=== PATIENT | female | born 1990 | race Caucasian/White ===

== ENCOUNTER 2018-05-14 09:26 | Emergency (ER) | payer BC ==
[2018-05-14] MEDS ORDERED: Ondansetron ODT TAB* 4 MG PO ONE (09:59)
[2018-05-14] MEDS ORDERED: NS 0.9% 1000 ML* 1,000 ML IV ONE (10:01)
--- NOTE | 2018-05-14 10:15 | UC ---
General HPI - HPI Summary HPI Summary: Pt presents with c/o frequent nausea and vomiting. Pt reports that she is ~ 7 weeks . Is scheduled for initial OB appointment this week. Pt vomited 3 X's yesterday and 1X today. Pt states she is unable to "keep anything down". 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 - History of Current Complaint Chief Complaint: UCGI Stated Complaint: VOMITING Time Seen by Provider: 05/14/18 09:46 Hx Obtained From: Patient Hx Last Menstrual Period: 03/20/18 Onset/Duration: Sudden Onset Timing: Constant Onset Severity: Mild Current Severity: Moderate Pain Intensity: 5 Associated Signs & Symptoms: Positive: Dizziness, Nausea, Vomiting - Allergy/Home Medications Allergies/Adverse Reactions: Allergies Allergy/AdvReac Type Severity Reaction Status Date / Time bee venom protein (honey bee) Allergy Unknown HIVES AND Verified 05/14/18 09:44 VOMITING Home Medications: Home Medications Pnv No.95/Ferrous Fum/Folic AC [ Tablet] 1 tab PO 05/14/18 [History] PMH/Surg Hx/FS Hx/Imm Hx Previously Healthy: Yes - Surgical History Surgical History: Yes Surgery Procedure, Year, and Place: WISDOM TEETH EXTRACTION - Family History Known Family History: Positive: Cardiac Disease - Social History 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 Lives: With Family Alcohol Use: None Substance Use Type: None Smoking Status (MU): Never Smoked Tobacco Have You Smoked in the Last Year: No - Immunization History Most Recent Influenza Vaccination: 06/17/14 Vaccination Up to Date: Yes Review of Systems Constitutional: Fatigue Skin: Negative Eyes: Negative ENT: Negative Respiratory: Negative Cardiovascular: Negative Gastrointestinal: Vomiting, Nausea Genitourinary: Negative Motor: Negative Neurovascular: Negative Musculoskeletal: Negative Neurological: Weakness Psychological: Negative Is Patient Immunocompromised?: No All Other Systems Reviewed And Are Negative: Yes Physical Exam - Summary Physical Exam Summary: pt was lying on side on exam table throughout exam as she reported she felt "sick and light headed" Triage Information Reviewed: Yes Appearance: Ill-Appearing Vital Signs: Initial Vital Signs Temp 99 F 05/14/18 09:46 Pulse 78 05/14/18 09:46 Resp 14 05/14/18 09:46 BP 100/49 05/14/18 09:46 Pulse Ox 100 10/07/18 09:46 Vital Signs Reviewed: Yes Eye Exam: Normal ENT: Positive: Hearing grossly normal Dental Exam: Normal Neck exam: Normal Respiratory: Positive: No respiratory distress Musculoskeletal Exam: Normal Neurological Exam: Normal Psychological Exam: Normal Skin Exam: Normal Course/Dx - Course Course Of Treatment: Pt reports that after 1 liter of IV fluids and 8 mg of ODT zofran she "felt better" and was "hungry" but continued to c/o of slight lightheaded. - Differential Dx - Multi-Symptom Provider Diagnoses: nausea and vomiting with Discharge - Sign-Out/Discharge Documenting (check all that apply): Patient Departure All imaging exams completed and their final reports reviewed: No Studies - Discharge Plan Condition: Stable Disposition: HOME Prescriptions: Ondansetron HCl [Zofran] 8 mg PO Q8H PRN #30 tablet PRN Reason: Nausea Patient Education Materials: Nausea and Vomiting in (ED) Referrals: Jena PENA,Kenyatta Bautista [Primary Care Provider] - If Needed Additional Instructions: Please keep your appointment with your Ob provider as schedule. If symptoms worsen please seek care at the closest emergency room. - Billing Disposition and Condition Condition: STABLE Disposition: Home - Attestation Statements Provider Attestation: I was available for consult. This patient was seen by the HOA. The patient was not presented to, seen by, or examined by me. -Rodger
[2018-05-14 11:16] VITALS: BP 93/51
== END 2018-05-14 11:43 | disposition home or self-care (01) ==
LOC: UCCORT 09:26
DX: O21.0 Mild hyperemesis gravidarum (principal); Z3A.01 Less than 8 weeks gestation of pregnancy
CPT/HCPCS: 81003; 96360; 99213; A9270-GY; G0463

== ENCOUNTER 2018-06-18 08:45 | Emergency (ER) | payer BC ==
--- OUTSIDE RECORDS SUMMARY | 2018-06-18 08:53 | XMS REPORT | Continuity of Care Document ---
:1990 External Reference #:[id number] Author Name Salma Crane CNM Address [address] [place] [address] Care Team Providers Name Role Phone Myra Benitez NP Care Team Information Red Lead Burner Unavailable Payers Type Date Identification Numbers Payment Provider Subscriber Effective: Policy Number: [id number] Rex BOWIE/NAIN Alo Soriano 2014 [facility] PayID: [id number] [address] [address] [place] [address] Advance Directives Description No Information Available Problems Description No Active Problems Family History Date Family Member(s) Problem(s) Comments Father Cancer, Kidney Father Hypertension Mother Skin Cancer Mother Hypercholesterolemia Mother Thyroid Disease Children None First Brother Gastrointestinal Problems Paternal Grandfather Heart Disease Paternal Grandfather due to Old Age () Paternal Grandmother Kidney Disease Maternal Grandfather Prostate Cancer Maternal Grandmother Breast Cancer Maternal Grandmother Depression Maternal Aunts due to ITP () Social History Type Date Description Comments Sex Unknown Education Highest Level Completed, Master's Degree Marital Status Lives With Pets 2 dogs 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 Cigarette Use Does Not Smoke Cigarettes ETOH Use Rarely consumes alcohol Recreational Drug Use Does Not Use Drugs Tobacco Use Start: Unknown Patient has never smoked Smoking Status Reviewed: 05/16/18 Patient has never smoked Exercise Type/Frequency Exercises regularly Seat Belt/Car Seat Always uses seat belt Currently Active Patient is currently sexually active Contraceptive Methods Past methods include oral contraceptives STD's No STD History Allergies, Adverse Reactions, Alerts Description No Known Drug Allergies Medications Medication Date Status Form Strength Qnty SIG Indications Ordering Provider Promethazine HCL 05/30/ Active Tablets 25mg 30tabs 1 tab by Aaron Josue mouth every Díaz, 4-6 hours CNM as needed nausea Diclegis 10/09/ Active Tablets 10-10mg 60tabs 2 pills by Saige 2018 DR mouth at Jump, bedtime can KYLIE-C add 1 by mouth in in the morning and at noon if nausea not better. Ondansetron 05/15/ Active Tablets 4mg 30tabs take 1 Erianna 2018 Dispers tablet Crane, dissolved CNM in the mouth every 8 hours as needed for nausea and vomiting Prenatabs Rx / Active Tablets 29-1mg 1 by mouth Unknown 0000 every day Metoclopramide 05/29/ Hx Tablets 5mg 60tabs 1-2 tabs by Erianna HCL 2018 - mouth every Crane, 05/30/ 6 hours as CNM 2018 needed for nausea Microgestin Fe 10/01/ Hx Strominge 1.01/04 2016 - Isac mccoy 12/05/ . 2017 Multivitamins / Hx Unknown - 2017 Buspirone HCL / Hx Unknown - 2017 Microgestin Fe / Hx Unknown 1.01/04 - 2015 Alprazolam / Hx Tablets 0.25mg Unknown 0000 - 2017 Medications Administered in Office Medication Date Status Form Strength Qnty SIG Indications Ordering Provider No PT Tbco Administered Injection Saige SCRN RNG 018 NAHUN Julien PT SCRN Tbco Administered Injection Saige Id as Non User 018 NAHUN Julien Immunizations Description No Information Available Vital Signs Date Vital Result Comment 06/01/2018 10:50am BP Systolic 96 mmHg BP Diastolic 60 mmHg Height 64 inches 5'4" Weight 107.00 lb BMI (Body Mass Index) 18.4 kg/m2 Last Menstrual Period [id number] 1 Parity 0 05/16/2018 8:42am BP Systolic 100 mmHg BP Diastolic 60 mmHg Height 64 inches 5'4" Weight 108.00 lb BMI (Body Mass Index) 18.5 kg/m2 Last Menstrual Period [id number] 1 Parity 0 12/05/2017 2:09pm BP Systolic 108 mmHg BP Diastolic 66 mmHg Height 64 inches 5'4" Weight 112.00 lb BMI (Body Mass Index) 19.2 kg/m2 Last Menstrual Period [id number] 0 Parity 0 10/11/2016 3:00pm BP Systolic 106 mmHg BP Diastolic 64 mmHg Height 64 inches 5'4" Weight 113.00 lb BMI (Body Mass Index) 19.4 kg/m2 Last Menstrual Period [id number] 0 Parity 0 10/01/2015 2:56pm BP Systolic 102 mmHg BP Diastolic 60 mmHg Height 64 inches 5'4" Weight 115.00 lb BMI (Body Mass Index) 19.7 kg/m2 Last Menstrual Period [id number] 0 Parity 0 Results Test Date Facility Test Result H/L Range Note Laboratory test 12/05/2017 [facility] Cytology SEE RESULT [address] [place] [address] BELOW [phone] Laboratory test 10/01/2015 [facility] Cytology SEE RESULT [address] [place] [address] BELOW [phone] 1 SEE RESULT BELOW Name: ALO SORIANO : [address]: Salma Crane CNM Acct: [id number] Unit: [id number] AGE: 27 Location: [facility] Re12/05/17 SEX: F Status: REG REF SPEC: [id number] ORION: 12/05/17-1514 [facility] DR: Salma Crane CNM REQ: [id number] RECD: 12/06/17 STATUS: SOUT _ ORDERED: TP IMAGE ANALYS COMMENTS: [id number] Negative for Intraepithelial lesion or Malignancy A. Ectocervical/Endocervical Specimen Adequacy: Satisfactory of evaluation Transformation zone component identified Patient Information: HPV: Thin Layer Pap Test w/reflex to high risk HPV RNA testing when ASCUS Actual Specimen Date: 12/05/17 Last Menstrual Date: 11/03/17 Date of Last Specimen: 10/01/15 ?: N Post Menopausal?: N Hysterectomy?: N Previous Abnormal Pap Smears?:N Signed by and Reported on: LILY Etienne (ASCP) 1410 This Pap test was evaluated with the assistance of the [employer] Test Imaging System. Due to cytologic findings at the clinical resource nurse microscope, comprehensive manual rescreening by a Machine Design Engineer may be required. The Pap Smear is a screening test designed to aid in the detection of premalignant and malignant conditions of the uterine cervix. It is not a diagnostic procedure and should not be used as the sole means of detecting cervical cancer. Both false- positive and false- negative reports do occur. Depending on your risk status, a Pap smear should be obtained and evaluated every 1-3 years. END OF REPORT DEPARTMENT OF PATHOLOGY, [address] [place] [address] Cesar Rosario M.D. Director [facility] # [id number] 2 SEE RESULT BELOW Name: ALO DUNNE : [address]: Myra Benitez NP Acct: [id number] Unit: [id number] AGE: 25 Location: [facility] Re10/01/15 SEX: F Status: REG REF SPEC: [id number] ORION: 10/01/15-[address]: Myra Benitez NP REQ: [id number] RECD: 10/02/15-1102 STATUS: SOUT _ ORDERED: IMAGE ANALYSIS FINAL DIAGNOSIS Negative for Intraepithelial lesion or Malignancy A. Ectocervical/Endocervical Specimen Adequacy: Satisfactory of evaluation Transformation zone component identified Patient Information: HPV: Thin Layer Pap Test w/reflex to high risk HPV RNA testing when ASCUS Actual Specimen Date: 10/01/15 Last Menstrual Date: 09/16/15 ?: N Signed (signature on file) LILY Etienne (ASCP) 10/03 1256 This Pap test was evaluated with the assistance of the ThinPrep Test Imaging System. Due to cytologic findings at the clinical resource nurse microscope, comprehensive manual rescreening by a Machine Design Engineer may be required. The Pap Smear is a screening test designed to aid in the detection of premalignant and malignant conditions of the uterine cervix. It is not a diagnostic procedure and should not be used as the sole means of detecting cervical cancer. Both false- positive and false- negative reports do occur. Depending on your risk status, a Pap smear should be obtained and evaluated every 1-3 years. END OF REPORT * ML=Testing performed at Main Lab DEPARTMENT OF PATHOLOGY, [address] [place] [address] Cesar Rosario M.D. 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 architect 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 2:20p CNM (general) (routine) w/o abn findings Z31.69 Encounter for oth general coun and advice on procreation Office Visit 10/11/2016 3:30p [facility] Office Myra Benitez NP Z01.419 Encntr 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 enterprise solutions architect exam (general) (routine) w/o abn findings Office Visit 10/01/2015 3:00p [facility] Office Myra Benitez NP Z01.419 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 You declined suppositories.Consider magnesium supplement, epsom salt soaks, magnesium oil/ cream rubbed on legs.We discussed need to trial meds for more than 1-3 days to consider effectiveness. You may have to balance nausea/vomiting with other SE as we may not be able to control both. Use Zofran only for extreme or breakthrough N/V due to possible serotonin syndrome with concomintant use of Phenergan, per UpToDate.Small meals throughout day, sip fluids throughout day. Try to do a small amount of physical movement like short walk, stretch as tolerated which may help with restelessness. Call with vomiting that is unremitting, not keeping/getting any fluids down and we can consider calling convenient care to see if they will take you with our ok as opposed to the ER. Return for NOB as scheduled.
[2018-06-18 09:11] VITALS: BP 96/43
--- NOTE | 2018-06-18 10:52 | UC ---
- HPI Summary HPI Summary: Pt c/o continuous nausea and vomiting since becoming . Pt has been diagnosed with Hyperemesis gravidum by OB provider. Pt has been manage, unsuccessfully as outpatient. Pt presents with request for hydration. Has taken zofran 1 hour ago - History of Current Complaint Chief Complaint: UCGI Stated Complaint: NAUSEA DUE TO HAVING HG (11 WKS ) Time Seen by Provider: 06/18/18 08:59 Hx Obtained From: Patient Onset/Duration: Started Weeks Ago, Still Present Timing: Constant Severity: Severe Current Severity: Severe Pain Intensity: 0 Location of Pain: None Character: Burning, Colicy, Dull Aggravating Factors: Other: - PO intake Alleviating Factors: Nothing Associated Signs and Symptoms: Positive: Nausea, Vomiting - Assessment Hx Now: Yes History of Ectopic : No Hx Pelvic Inflammatory Disease: No Vaginal Bleeding Amount: None Contraction Intensity: Mild Hx Hysterectomy: No History of STI/STD: No - Risk Factors Ectopic Risk Factor: Negative Ovarian Torsion Risk Factor: Reproductive Age - Allergies/Home Medications Allergies/Adverse Reactions: Allergies Allergy/AdvReac Type Severity Reaction Status Date / Time bee venom protein (honey bee) Allergy Unknown HIVES AND Verified 06/18/18 09:07 VOMITING Home Medications: Home Medications Folic Acid TAB* [Folvite TAB*] 1 mg PO DAILY 06/18/18 [History Confirmed ] PMH/Surg Hx/FS Hx/Imm Hx Previously Healthy: Yes - Surgical History Surgical History: Yes Surgery Procedure, Year, and Place: WISDOM TEETH EXTRACTION - Family History Known Family History: Positive: Cardiac Disease - Social History Occupation: Employed Full-time Lives: With Family Alcohol Use: None Substance Use Type: None Smoking Status (MU): Never Smoked Tobacco Have You Smoked in the Last Year: No - Immunization History Most Recent Influenza Vaccination: 06/17/14 Vaccination Up to Date: Yes Review of Systems All Other Systems Reviewed And Are Negative: Yes Constitutional: Positive: Fatigue Skin: Positive: Negative Eyes: Positive: Negative ENT: Positive: Negative Respiratory: Positive: Negative Cardiovascular: Positive: Negative Gastrointestinal: Positive: Vomiting, Nausea Genitourinary: Positive: Negative Motor: Positive: Negative Neurovascular: Positive: Negative Musculoskeletal: Positive: Negative Neurological: Positive: Negative Psychological: Positive: Negative Is Patient Immunocompromised?: No Physical Exam - Physical Exam Triage Information Reviewed: Yes Vital Signs Reviewed: Yes Appearance: Positive: Ill-Appearing Skin: Positive: Warm, Skin Color Reflects Adequate Perfusion Head/Face: Positive: Normal Head/Face Inspection Eyes: Positive: Normal ENT: Positive: Hearing grossly normal Neck: Positive: Supple, Nontender Respiratory/Lung Sounds: Positive: Clear to Auscultation Cardiovascular: Positive: Normal Abdomen Description: Positive: Nontender Musculoskeletal: Positive: Normal Neurological: Positive: Normal Psychiatric: Positive: Normal AVPU Assessment: Alert Course/Dx - Course Course Of Treatment: Pt was given educayional material on HG. Additionally, I discussed the need for management by OB providera nd not through UC. Pt verbalized understanding and was told by OB provider that dcould provide hydration support. - Differential Diagnosis/HQI/PQRI: Hyperemesis Gravidarum - Diagnoses Provider Diagnoses: Hyperemesis gravidarum Discharge - Sign-Out/Discharge Documenting (check all that apply): Patient Departure All imaging exams completed and their final reports reviewed: No Studies - Discharge Plan Condition: Stable Disposition: HOME Patient Education Materials: Nausea and Vomiting in (ED) Referrals: Jena PENA,Kenyatta Bautista [Primary Care Provider] - Additional Instructions: Please follow up with your OB provider as soon as possible. - Billing Disposition and Condition Condition: STABLE Disposition: Home - Attestation Statements Provider Attestation: Per institutional requirements, I have reviewed the chart, however, I was not consulted specifically or made aware of this patient by the midlevel provider. I did not personally evaluate, interact with , or disposition this patient.
== END 2018-06-18 10:59 | disposition home or self-care (01) ==
LOC: UCCORT 08:45
DX: O21.0 Mild hyperemesis gravidarum (principal); Z3A.11 11 weeks gestation of pregnancy
CPT/HCPCS: 96360; 99212; G0463

== ENCOUNTER 2018-06-26 08:23 | Emergency (ER) | payer BC ==
[2018-06-26 08:40] VITALS: BP 106/60
[2018-06-26] MEDS ORDERED: NS 0.9% 1000 ML* 1,000 ML IV ONE (08:45)
--- NOTE | 2018-06-26 09:10 | UC ---
Nausea/Vomiting/Diarrhea HPI - HPI Summary HPI Summary: Patient is 13 weeks . Patient with hyperemesis with this . Patient's got Zofran at home. Patient states that the Zofran helps with the vomiting but she still feels nauseous. Patient states she was in the ED yesterday. Patient was given fluids as well as Zofran. Patient states she got home approximately 2 PM she started vomiting. Patient states she vomited several times to the night. Last bout of emesis was last night around 9:00. Patient states she took some Zofran at 6:30 this morning. Patient states she continues to feel nauseous and dry. Patient states she is making urine but it' s very dark in color. No dysuria. No vaginal bleeding. No odor. Patient denies any other complaints. Patient's followed by the [facility]. They are aware tried different antiemetics. Patient without any other complaints. No fevers or chills. Patient's medications reviewed this visit - History of Current Complaint Chief Complaint: UCGI Stated Complaint: NAUSEA,VOMITING Time Seen by Provider: 06/26/18 09:09 Hx Obtained From: Patient, Medical Records Hx Last Menstrual Period: 03/20/18 Onset/Duration: Gradual Onset Timing: Constant Severity Initially: Mild Severity Currently: Mild Pain Intensity: 0 - Allergies/Home Medications Allergies/Adverse Reactions: Allergies Allergy/AdvReac Type Severity Reaction Status Date / Time bee venom protein (honey bee) Allergy Unknown HIVES AND Verified 06/26/18 08:36 VOMITING Home Medications: Home Medications Ondansetron ODT TAB* [Zofran 4 MG Odt TAB*] 4 - 8 mg PO Q6H PRN 06/26/18 [ History Confirmed 06/26/18] PMH/Surg Hx/FS Hx/Imm Hx Previously Healthy: Yes - Surgical History Surgical History: Yes Surgery Procedure, Year, and Place: WISDOM TEETH EXTRACTION - Family History Known Family History: Positive: Cardiac Disease - Social History Alcohol Use: None Substance Use Type: None Smoking Status (MU): Never Smoked Tobacco Have You Smoked in the Last Year: No - Immunization History Most Recent Influenza Vaccination: 06/17/14 Vaccination Up to Date: Yes Review of Systems All Other Systems Reviewed And Are Negative: Yes Constitutional: Positive: Negative Gastrointestinal: Positive: Nausea Physical Exam - Summary Physical Exam Summary: Vital Signs Reviewed: Yes A+Ox3, no distress Eyes: Conjunctiva Clear, ENT: Hearing grossly normal, lips dry, mm pasty Neck: Positive: Supple Respiratory: Positive: No respiratory distress, No accessory muscle use + CTA throughout no w/r Cardiovascular: RRR nl s1, s2 no m/r CBT <2 sec abd soft + BS nt/nd no guarding, no distension soft Musculoskeletal Exam: OQUENDO x 4 without difficulty Strength Intact, ROM Intact Neurological: Positive: Alert, + sensation throughout Psychological: Positive: Normal Response To Family Skin: Positive: no rash, no ecchymosis Triage Information Reviewed: Yes Vital Signs: Initial Vital Signs Temp 98.1 F 06/26/18 08:35 Pulse 106 06/26/18 08:35 Resp 16 06/26/18 08:35 BP 106/60 06/26/18 08:35 Pulse Ox 100 06/26/18 08:35 Naus/Vom/Diarrhea Course/Dx - Course Course Of Treatment: Patient's 13 weeks . Patient with hyperemesis gravidarum. Patient's been seen multiple times for emesis. Patient 's also follow by her PASSENGER LOCOMOTIVE ENGINEER who is prescribed multiple anti-medics. Patient was in the ED yesterday received IV fluid. Patient here today - Differential Dx/Diagnosis Provider Diagnoses: hyperemesis gravidum Condition At Discharge: Stable Discharge - Sign-Out/Discharge Documenting (check all that apply): Patient Departure All imaging exams completed and their final reports reviewed: No Studies - Discharge Plan Condition: Stable Disposition: HOME Patient Education Materials: Hyperemesis Gravidarum (ED) Referrals: Jena PENA,Kenyatta Bautista [Primary Care Provider] - Additional Instructions: - Take zofran as prescribed - Small frequent sips of fluids, ice chips - bland food - dry toast, scambled eggs, crackers - contact your doctor or go to the emergency department with questions or concerns - Billing Disposition and Condition Condition: STABLE Disposition: Home
== END 2018-06-26 09:57 | disposition home or self-care (01) ==
LOC: UCCORT 08:23
DX: O21.0 Mild hyperemesis gravidarum (principal); Z3A.13 13 weeks gestation of pregnancy
CPT/HCPCS: 96360; 99211; G0463

== ENCOUNTER 2018-12-31 01:26 | Inpatient (IN) | payer BC ==
[2018-12-31] MEDS ORDERED: Nalbuphine* 10 MG/ML 1 ML VIAL IM PRN (02:23)
[2018-12-31] MEDS ORDERED: Promethazine INJ(RESTRICTED)* 25 MG/ML 1 ML VIAL IM PRN (02:23)
[2018-12-31] MEDS ORDERED: Ondansetron ODT TAB* 4 MG PO PRN (02:26)
[2018-12-31] MEDS ORDERED: Buffered Lidocaine 1% SYRIN* 1 ML/SYRINGE INTRADERM ONE (09:04)
[2018-12-31] MEDS ORDERED: Lactated Ringers 1000 ML Bag* 1,000 ML IV ONE (09:04)
--- NOTE | 2018-12-31 09:15 | HP ---
General Information - Reason for Visit Patient reports large gush and continued trickle of clear fluid from 2129 last night. Contractions now approx Q 5 min. Some bloody show. Received Nubain/ Phenargan with some pain relief and slept a little. - General Information Maternal Age: 28 Grav: 1 Para: 0 SAB: 0 IEA: 0 Estimated Due Date: 01/06/19 Determined By: Early Ultrasound Gestational Age in Weeks/Days: 39+1 weeks Maternal Blood Type and Rh: A Positive - Results this Serology/RPR Result: Non-Reactive Rubella Result: Immune HBsAg Result: Negative HIV Result: Negative GBS Culture Result: Negative Past Medical History Delivery History: See Records Delivery History Comment: No previous pregnancies Pertinent Past Medical History: See Records Past Medical History Comment: Depression/anxiety Pertinent Past Surgical History: See Records Past Surgical History Comment: Matinicus teeth 2011 Pertinent Family History: See Records Family History Comment: Breast Ca -- maternal grandmother Hypothyroid -- mother HTN Kidney Ca Hypercholesteremia Celiac? Heart dz Prostate Ca - Antepartal Records Antepartal Records: Reviewed, Uncomplicated Review of Systems Constitutional: Uncomfortable CV Complaint: No Respiratory: Shortness of Breath: No Gastrointestinal: Nausea, Soft Stool Genitourinary: Leaking Fluid, No Dysuria, Spotting Musculoskeletal: Contractions Neurological: No Headache, No Visual Changes Movement: Normal Exam Allergies/Adverse Reactions: Allergies bee venom protein (honey bee) Allergy (Unknown, Verified 12/31/18 01:37) HIVES AND VOMITING BP 99/47 T 99.4 HR 68 - Measurements Height: 5 ft 5 in Weight: 140 lb Weight in lbs: [id number] Body Mass Index (BMI): 23.3 Pre- Weight: 107 lb Weight Gained This : 33 lbs and 0 ozs - Exam Breast: Breast Exam Deferred CVA: No CVA Tenderness Extremities: No Edema Heart: Normal Rhythm/Heart Sounds HEENT: No Significant Findings Lungs: Clear Bilaterally Rectal: Rectal Exam Deferred Reflexes: DTR 2+, - - no clonus Thyroid: - - WNL @ entry to care - Abdominal Exam Abdomen Exam: Non-Tender, Fundal Height Consistent with Dates - Ultrasound/Biophysical Profile Ultrasound Status: Not Done Targeted Exam Findings See L&D Outpatient Visit Provider Note for Findings: N/A Estimated Weight: 7lb Cervical Exam: 4cm Effacement: 100% Station: 0 Presenting Part: Vertex Membrane Status: SROM Amniotic Fluid Evaluation: Gross Rupture Bleeding/Discharge: Bloody Show EFM Findings - External Monitor Findings Baseline Heart Rate: 140 External Monitor Findings: Accelerations Present, No Pattern of Variable or Late Decelerations - Single variable decel approx 1 min long, found on initiation of monitoring so uncertain if longer. Return to baseline., Variability Moderate Contractions: Regular, Moderate, 45-90 Seconds Contraction Frequency: Q 4-5 min Assessment/Plan - Assessment IUP @ 39+1 weeks gestation in early labor. Spontaneous rupture of membranes. No evidence metabolic acidemia. - Plan Plan: Admit - Anticipate Vaginal Delivery Plan Comment: Admit to L&D. Patient prefers to avoid epidural anesthesia if possible. Discussion of IV fluid for hydration, patient in agreement. Will try hydrotherapy, continued position changes. Consider nitrous if desired. Anticipate SVB. - Date/Time of Admission Date of Admission: 12/31/18 Time of Admission: 02:27
[2018-12-31] MEDS ORDERED: Lactated Ringers 1000 ML Bag* 1,000 ML IV SCH ×2 (10:00→13:00)
[2018-12-31 10:05] LABS: ABS Lymphocytes 1.4 10^3/ul (1.0-4.8); ABS Monocytes 0.8 10^3/ul (0-0.8); ABS Neutrophils 10.9 10^3/ul (1.5-7.7); Eosinophil % 0.1 %; Hematocrit 37 % (35-47); Hemoglobin 12.1 g/dL (12.0-16.0); Lymphocyte % 10.7 %; Mean Corpuscular HGB Conc 33 g/dL (31-36); Mean Corpuscular Hemoglobin 27 pg (27-31); Mean Corpuscular Volume 84 fL (80-97); Mean Platelet Volume 8.8 fL (7.4-10.4); Platelet Count 225 10^3/uL (150-450); Red Blood Count 4.43 10^6 /uL (3.70-4.87); Red Cell Distribution Width 16 % (10.5-15); White Blood Count 13.2 10^3/uL (3.5-10.8)
--- NOTE | 2018-12-31 10:34 | PN ---
Progress Note - Progress Note Date of Service: 12/31/18 Note: S: Patient reports feeling "like she has to poop" with increased pressure after getting out of tub. O: VE 7-8cm/100/vtx +1 FHT 150 VSS, afebrile A: IUP in active labor Cat 1 FHT P: Encourage position changes, anticipate SVB
[2018-12-31] MEDS ORDERED: Oxytocin in LR* 0 UNITS/0 ML BAG IVPB ONE (10:59)
[2018-12-31] MEDS ORDERED: Dibucaine 1% 28.35 GM TUBE PR PRN (12:09)
[2018-12-31] MEDS ORDERED: Acetaminophen TAB* 325 MG PO PRN (12:09)
[2018-12-31] MEDS ORDERED: Glycerin ADULT SUPP PR PRN (12:09)
[2018-12-31] MEDS ORDERED: Witch Hazel PAD* JAR TOPICAL PRN (12:09)
--- NOTE | 2018-12-31 13:51 | PROCNOTE ---
[facility] OB: Delivery Note - Nursery Level of Nursery: Regular/Bedside - Perineum Perineal Injury: Perineal Laceration, 1st Degree Perineal Repair: By Delivering Practioner - Additional Delivery Notes Additional Delivery Notes: Patient admitted after SROM at home 12/30 approx 2130. UCs started slowly, picking up in intensity and patient admitted in early labor. Received IM nubain/ phenargan with some relief. Woke with stronger contractions and good progression to complete. LOL 12'11", pushed 51 min. Baby born @ 1134 OA to TORRES with nuchal X1, delivered through and unwrapped after. To maternal abdomen with spontaneous cry, HR >110. Apgars 9, 9. Cord doubly clamped X 2 and cut by FOB once pulsations ceased. Placenta delivered with gentle cord traction @ 1141 in [place] presentation with intact-appearing membranes and 3VC. Fundus firm to massage. Baby at breast to initiate . Weight 6lb 5oz. Baby name Sofia Renteria
[2018-12-31] MEDS ORDERED: Lidocaine 1% INJ* 10 MG/ML 30 ML SDV ONE (15:31)
[2018-12-31] MEDS: Docusate CAP* 100 MG PO SCH ×2 (15:52→21:40)
[2018-12-31] MEDS: Ibuprofen TAB* 600 MG PO PRN (15:52)
[2019-01-01] MEDS: Ibuprofen TAB* 600 MG PO PRN ×2 (04:28→19:57)
[2019-01-01 08:59] LABS: ABS Basophils 0.1 10^3/ul (0-0.2); ABS Eosinophils 0.1 10^3/ul (0-0.6); ABS Lymphocytes 1.8 10^3/ul (1.0-4.8); ABS Monocytes 0.9 10^3/ul (0-0.8); ABS Neutrophils 8.9 10^3/ul (1.5-7.7); Eosinophil % 0.6 %; Hematocrit 34 % (35-47); Hemoglobin 11.2 g/dL (12.0-16.0); Lymphocyte % 15.4 %; Mean Corpuscular HGB Conc 33 g/dL (31-36); Mean Corpuscular Hemoglobin 27 pg (27-31); Mean Corpuscular Volume 83 fL (80-97); Mean Platelet Volume 8.8 fL (7.4-10.4); Platelet Count 209 10^3/uL (150-450); Red Blood Count 4.13 10^6 /uL (3.70-4.87); Red Cell Distribution Width 16 % (10.5-15); White Blood Count 11.8 10^3/uL (3.5-10.8)
[2019-01-01] MEDS ORDERED: Ferrous Gluconate TAB* 324 MG TAB PO SCH (09:00)
[2019-01-01] MEDS: Docusate CAP* 100 MG PO SCH ×3 (09:54→19:57)
[2019-01-02 08:03] VITALS: BP 100/68
[2019-01-02] MEDS: Docusate CAP* 100 MG PO SCH (08:18)
== END 2019-01-02 12:31 | disposition home or self-care (01) | DRG 560 ==
LOC: MCHOBOUT 01:26 → MCHOB 02:27
PROVIDERS: ADMIT Midwife; ATTEND Midwife
PROC: 10E0XZZ Delivery of Products of Conception, External Approach (ICD-10-PCS; principal; 2018-12-31)
PROC: 0HQ9XZZ Repair Perineum Skin, External Approach (ICD-10-PCS; 2018-12-31)
DX: O99.344 Other mental disorders complicating childbirth (principal); Z37.0 Single live birth; F41.9 Anxiety disorder, unspecified; F32.9 Major depressive disorder, single episode, unspecified; O70.0 First degree perineal laceration during delivery; O69.81X0 Labor and delivery complicated by cord around neck, without compression, not applicable or unspecified; Z3A.39 39 weeks gestation of pregnancy
CPT/HCPCS: 36415; 85025; 86850; 86900; 86901; A9270-GY; J2300; J2550

== ENCOUNTER 2019-07-20 07:34 | Emergency (ER) | payer BC ==
--- OUTSIDE RECORDS SUMMARY | 2019-07-20 07:40 | XMS REPORT | Summary of Care ---
:1990 Author Organization [facility] Address [address] [place] [address] Care Team Providers Name Role Phone Nader Webster MD Primary Care Provider Encounter Details Date Type Department Care Team Description 06/21/2019 Hospital Encounter [facility] Outpatient Arrived Therapy [facility] [address] [place] [address] Allergies Not on Filedocumented as of this encounter (statuses as of 06/22/2019) Medications Not on filedocumented as of this encounter (statuses as of 06/22/2019) Active Problems Not on filedocumented as of this encounter (statuses as of 06/22/2019) Social History Tobacco Use Types Packs/Day Years Used Date Never Assessed Sex Assigned at Date Recorded Not on file Job Start Date Occupation Industry Not on file Not on file Not on file Travel History Travel Start Travel End No recent travel history available. documented as of this encounter Last Filed Vital Signs Not on filedocumented in this encounter Progress Notes Tamika Acosta, PT - 06/21/2019 5:05 PM ESTPhysical Therapy Outpatient Pelvic Floor Treatment Note Referring Clinician: Salma Crane CNM Medical Diagnosis: Pelvic Floor Dysfunction Rehabilitation Precautions/Restrictions: none Goal Review Visit Number: 8 SUBJECTIVE Patient Report: pt reports that she still continues to have some "dripping" in her sleep and also at random times when she is going about her day. She has been doing some more running for exercise but not a whole lot. She does not have any leaking with walking. She has stopped doing the exercises and has had some issues with pain with insertion during intercourse. Pain Medication Today: no. Pain: Patient has no complaints of pain currently. OBJECTIVE General Observation: pt encountered, pleasant female in waiting room in' NAD Outcome Measures: Recently assessed, not applicable at this time. Range of Motion:Not assessed. Strength:Not assessed. Palpation: not assessed Bacteriology Professor Present: Not applicable this visit. Interventions: Therapeutic Exercise: The pt was instructed in and performed the following with verbal and tactile cues to promote maximal level of pt participation and for appropriate form, technique and speed: - supine, knees supported diaphragmatic breathing with cues for relaxing at hips and pelvis during this task, cues for progressive relaxation; - supine knees to chest 10 breaths; - supine obturator internus stretch with thighs crossed each side 10 breaths; pt instructed to perform all at home 2x per day to promote relaxation of pelvic floor musculature Education: Mode of education provided: Explanation. Audience: Patient. Education Provided: role of pelvic floor PT; progress toward PT goals; home exercise program . Response: Indicates understanding. ASSESSMENT Therapy Diagnosis: Rank Code Description Date of Onset 1 Z39.2 Encounter for routine follow-up 12/31/2018 2 N39.41 Urge incontinence 12/31/2018 3 R39.15 Urgency of urination 12/31/2018 Response to Visit: The session was tolerated well. Pt is progressing well hwoever continues to have difficulty with incontinence likely due to intermittent muscle fatigue at pelvic floor, pt instructed to perform diaphragmatic breathing 2x per day and attempt stress management regimen. Pt continues to wear pad each day due to leakage. Pain: Patient has no complaints of pain currently. Clinical Status Changes: Patient has not experienced significant, unusual or unexpected change in clinical status since their last visit. Goal review: Short Term Goals: 1. Pt will decrease impact of urgency incontinence on pt's quality of life as evidenced by a decrease in JAE-6 score from 07/31 to 6, within 4 weeks. Status: not assessed 2. Pt will report no leakage with transfers from standing to sitting position 100% of the time over the course of one week, within 4 weeks. Status: goal met Noise Tester Goals: 1. Pt will decrease impact of urgency incontinence on quality of life as indicated by decrease in JAE-6 score from 12 to 0/24, within 8 weeks. Status: not assessed 2. goal met Status: goal met PLAN Intervention considerations/suggestions for future therapy sessions: . clam shell exercises cupping monica LEs hip strengthening Treatment Frequency, Duration, and Interventions: Restorative Physical Therapy is recommended for once every week for 30-60 minutes for 4 weeks, starting 06/21/19 Treatment is to include: Gait Training. Therapeutic Activity. Therapeutic Exercise. Neuromuscular Re-education. Self Care/Home Management. Manual Therapy. Equipment Provided: None issued this visit. Recommended Consults: None currently. Development of Plan of Care: Participants included: pt. There was no change to plan of care today. Visit Number: Today's visit is number 8 Program: Pelvic Dysfunction SESSION: Duration: 35 CHARGES: [id number] - CHARGE - PT THER EX - 15 MIN 2 Units - PELVIC DYSFUNCTION VISIT 1 Units Total treatment minutes: 35.00 Minutes Electronically Signed by: Tamika Acosta DPT, 06/21/2019 5:23:08 PM documented in this encounter Plan of Treatment Not on filedocumented as of this encounter Results Not on filedocumented in this encounter
--- OUTSIDE RECORDS SUMMARY | 2019-07-20 07:40 | XMS REPORT | Summary of Care ---
:1990 Author Organization [facility] Address [address] [place] [address] Care Team Providers Name Role Phone Nader Webster MD Primary Care Provider Encounter Details Date Type Department Care Team Description 06/21/2019 Hospital Encounter [facility] Outpatient Arrived Therapy @ [facility] [address] [place] [address] Allergies Not on Filedocumented as [...] Signs Not on filedocumented in this encounter Plan of Treatment Not on filedocumented as of this encounter Results Not on filedocumented in this encounter
[2019-07-20 07:58] VITALS: BP 96/58
--- NOTE | 2019-07-20 08:14 | UC ---
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 Has had low grade fever off and on. Malaise and myalgias have persisted, with loose stool today following several days without loose stools. No cough or headache, sore throat began this morning. Breast feeding a 6 mo --both she and her child just had flu vaccine this week. - History of Current Complaint Chief Complaint: UCRespiratory Stated Complaint: FEVER,VOMITING,ST,PENG Time Seen by Provider: 07/20/19 08:05 Hx Obtained From: Patient Hx Last Menstrual Period: 03/2018 Onset/Duration: Sudden Onset, Lasting Days - 5 Timing: Intermittent Episodes Lasting: - hours Onset Severity: Mild Current Severity: Mild Pain Intensity: 2 Associated Signs & Symptoms: Positive: Diarrhea, Fever, Nausea, Vomiting - Allergy/Home Medications Allergies/Adverse Reactions: Allergies Allergy/AdvReac Type Severity Reaction Status Date / Time bee venom protein (honey bee) Allergy Unknown HIVES AND Verified 07/20/19 07:45 VOMITING Home Medications: Home Medications Acetaminophen [Acetaminophen Extra Strength] 1,000 mg PO ONCE PRN 07/20/19 [ History Confirmed 07/20/19] Norethindrone [Deblitane] 0.35 mg PO QPM 07/20/19 [History Confirmed 07/20/19] PMH/Surg Hx/FS Hx/Imm Hx Previously Healthy: Yes - Surgical History Surgical History: Yes Surgery Procedure, Year, and Place: WISDOM TEETH EXTRACTION - Family History Known Family History: Positive: Cardiac Disease - Social History Occupation: Employed Full-time Lives: With Family Alcohol Use: None Substance Use Type: None Smoking Status (MU): Never Smoked Tobacco Have You Smoked in the Last Year: No - Immunization History Most Recent Influenza Vaccination: 06/19/18 Most Recent Pneumonia Vaccination: none Vaccination Up to Date: Yes Review of Systems All Other Systems Reviewed And Are Negative: Yes Constitutional: Positive: Fever, Fatigue Skin: Positive: Negative Eyes: Positive: Negative ENT: Positive: Sore Throat Respiratory: Positive: Negative Cardiovascular: Positive: Negative Gastrointestinal: Positive: Vomiting - now resolved, Diarrhea, Nausea Genitourinary: Positive: Negative Motor: Positive: Negative Neurovascular: Positive: Negative Musculoskeletal: Positive: Myalgia Neurological: Positive: Negative Psychological: Positive: Negative Is Patient Immunocompromised?: No Physical Exam Triage Information Reviewed: Yes Appearance: No Pain Distress, Ill-Appearing - looks pale and fatigued, Thin Vital Signs: Initial Vital Signs Temp 99 F 07/20/19 07:49 Pulse 90 07/20/19 07:49 Resp 20 07/20/19 07:49 BP 96/58 07/20/19 07:49 Pulse Ox 100 07/20/19 07:49 Eyes: Positive: Conjunctiva Clear ENT: Positive: Pharyngeal erythema, TMs normal. Negative: Tonsillar swelling, Tonsillar exudate Neck: Positive: Supple, Nontender, No Lymphadenopathy Respiratory: Positive: Lungs clear, Normal breath sounds Cardiovascular: Positive: RRR, No Murmur Abdomen Description: Positive: Nontender, No Organomegaly, Soft Bowel Sounds: Positive: Present Musculoskeletal Exam: Normal Neurological Exam: Normal Psychological Exam: Normal Skin Exam: Normal, Other - small excoriations left side of neck from scratching. Diagnostics - Laboratory Lab Results: Rapid flu and rapid strep tests negative. Course/Dx - Course Course Of Treatment: symptomatic treatment of viral syndrome. - Differential Dx - Multi-Symptom Differential Diagnoses: Other - viral syndrome, influenza, pharyngitis - Diagnoses Provider Diagnosis: Acute viral syndrome Discharge ED - Sign-Out/Discharge Documenting (check all that apply): Patient Departure All imaging exams completed and their final reports reviewed: No Studies - Discharge Plan Condition: Stable Disposition: HOME Patient Education Materials: Viral Syndrome (ED) Forms: *Work Release Referrals: Kenyatta Bella PA [Primary Care Provider] - Additional Instructions: Continue symptomatic treatment of viral illness. Get as much rest as you can, continue use of acetaminophen for control of fever and aches and pains, continue high intake of fluids. Follow up if you have persistent or increasing fever, cough or shortness of breath. - Billing Disposition and Condition Condition: STABLE Disposition: Home
[2019-07-20 08:34] LABS: Influenza A Molecular NEGATIVE (Negative); Influenza B Molecular NEGATIVE (Negative)
== END 2019-07-20 08:49 | disposition home or self-care (01) ==
LOC: UCCORT 07:34
DX: B34.9 Viral infection, unspecified (principal); R53.83 Other fatigue; M79.10 Myalgia, unspecified site; R19.7 Diarrhea, unspecified; Z91.030 Bee allergy status
CPT/HCPCS: 87651; 99211; G0463

== ENCOUNTER 2021-05-12 09:48 | Inpatient (IN) ==
[2021-05-12] MEDS ORDERED: Lactated Ringers 1000 ml BAG 1,000 ML IV ONE (11:04)
[2021-05-12 12:11] LABS: Urine Benzodiazepine Screen None Detected (None Detect); Urine Cannabinoids Screen None Detected (None Detect); Urine Opiates Screen None Detected (None Detect)
[2021-05-12] MEDS ORDERED: Buffered Lidocaine 1% SYRIN 1 ml INTRADERM ONE (12:22)
[2021-05-12 12:43] LABS: Rapid COVID-19 Molecular Undetected (Undetected)
[2021-05-12] MEDS: Ondansetron 4 mg VIAL 2 MG/ML 2 ml VIAL IV PRN ×2 (12:51→16:32)
[2021-05-12 13:02] LABS: Urine Appearance Cloudy; Urine Bilirubin Negative (Negative); Urine Blood Negative (Negative); Urine Color Straw; Urine Glucose Negative (Negative); Urine Ketones Negative (Negative); Urine Nitrite Negative (Negative); Urine Protein Negative (Negative); Urine Specific Gravity 1.004 (1.002-1.030); Urine Urobilinogen Negative (Negative)
[2021-05-12 13:21] LABS: Urine Bacteria 1+ (Absent); Urine Red Blood Cell Absent (Absent); Urine Squamous Epithelial Cell Present (Absent); Urine White Blood Cell Trace(0-5/hpf) (Absent)
[2021-05-12] MEDS ORDERED: Dibucaine 1% OINT 28.35 GM TUBE PR PRN (17:42)
[2021-05-12] MEDS ORDERED: Oxytocin 10 UNITS/ML 1 ML VIAL IM ONE (17:42)
[2021-05-12] MEDS ORDERED: Witch Hazel PAD JAR TOPICAL PRN (17:42)
[2021-05-12] MEDS ORDERED: Ammonia Inhalant 1 EA AMP ONE (18:56)
[2021-05-12 23:57] LABS: Hypochromasia 1+; Microcytosis 1+; Polychromasia 1+
[2021-05-12 23:58] LABS: ABS Basophils 0.1 10^3/ul (0-0.2); ABS Lymphocytes 1.8 10^3/ul (1.0-4.8); ABS Monocytes 0.7 10^3/ul (0-0.8); ABS Neutrophils 5.9 10^3/ul (1.5-7.7); Eosinophil % 0.5 %; Hematocrit 29 % (35-47); Hemoglobin 9.2 g/dL (12.0-16.0); Lymphocyte % 20.7 %; Mean Corpuscular HGB Conc 31 g/dL (31-36); Mean Corpuscular Hemoglobin 23 pg (27-31); Mean Corpuscular Volume 73 fL (80-97); Mean Platelet Volume 9.8 fL (7.4-10.4); Nucleated Red Blood Cells % 0.4; Platelet Count 210 10^3/uL (150-450); Red Blood Count 4.03 10^6 /uL (3.70-4.87); Red Cell Distribution Width 20 % (10-15); White Blood Count 8.5 10^3/uL (3.5-10.8)
[2021-05-13 07:09] LABS: ABS Basophils 0.1 10^3/ul (0-0.2); ABS Eosinophils 0.1 10^3/ul (0-0.6); ABS Lymphocytes 1.6 10^3/ul (1.0-4.8); ABS Monocytes 0.9 10^3/ul (0-0.8); ABS Neutrophils 7.8 10^3/ul (1.5-7.7); Eosinophil % 0.6 %; Hematocrit 26 % (35-47); Hemoglobin 8.4 g/dL (12.0-16.0); Lymphocyte % 15.2 %; Mean Corpuscular HGB Conc 33 g/dL (31-36); Mean Corpuscular Hemoglobin 23 pg (27-31); Mean Corpuscular Volume 70 fL (80-97); Mean Platelet Volume 9.3 fL (7.4-10.4); Nucleated Red Blood Cells % 0.2; Platelet Count 198 10^3/uL (150-450); Red Blood Count 3.69 10^6 /uL (3.70-4.87); Red Cell Distribution Width 20 % (10-15); White Blood Count 10.4 10^3/uL (3.5-10.8)
[2021-05-13] MEDS ORDERED: Measles, Mumps,Rubella VACC 0.5 ML/VIAL SUBCUT ONE (09:00)
[2021-05-13 16:01] VITALS: BP 100/62
== END 2021-05-13 19:10 | disposition home or self-care (01) | DRG 560 ==
LOC: MCHOBOUT 09:48 → MCHOB 11:20
PROVIDERS: ADMIT Midwife; ATTEND Midwife

== ENCOUNTER 2024-07-02 09:41 | Observation (INO) ==
[2024-07-02] MEDS ORDERED: miSOPROStol 100 mcg TAB VAGINAL ONE (11:33)
[2024-07-02] MEDS ORDERED: Prochlorperazine 5 mg/ml 2 ml VIAL (10 mg) IV PRN (11:33)
[2024-07-02] MEDS ORDERED: Lactated Ringers 1000 ml BAG 1,000 ML IV ONE (11:33)
[2024-07-02] MEDS ORDERED: Buffered Lidocaine 1% SYRIN 1 ml INTRADERM ONE (11:33)
[2024-07-02] MEDS ORDERED: Nalbuphine 10 MG/ML 1 ML VIAL IV PRN (11:33)
[2024-07-02] MEDS ORDERED: Lidocaine 1% VIAL 10 MG/ML 30 ML VIAL INJ PRN (11:33)
[2024-07-02] MEDS ORDERED: Lactated Ringers 1000 ml BAG 1,000 ML IV SCH (12:00)
[2024-07-02 12:11] LABS: Urine Benzodiazepine Screen None Detected (None Detect); Urine Cannabinoids Screen None Detected (None Detect); Urine Opiates Screen None Detected (None Detect)
== END 2024-07-02 14:40 | disposition home or self-care (01) ==
LOC: MCHOBOUT 09:41 → MCHOB 09:49 → INTOOBSV 09:49

== ENCOUNTER 2024-07-09 08:58 | Inpatient (IN) ==
[2024-07-09] MEDS ORDERED: Lidocaine 1% VIAL 10 MG/ML 30 ML VIAL INJ PRN (09:21)
[2024-07-09] MEDS: miSOPROStol 100 mcg TAB VAGINAL ONE ×2 (10:23→14:44)
[2024-07-09 12:44] LABS: Urine Benzodiazepine Screen None Detected (None Detect); Urine Cannabinoids Screen None Detected (None Detect); Urine Opiates Screen None Detected (None Detect)
[2024-07-09 18:55] LABS: ABS Basophils 0.1 10^3/uL (0.0-0.1); ABS Eosinophils 0.1 10^3/uL (0.0-0.5); ABS Lymphocytes 1.5 10^3/uL (1.0-4.8); ABS Monocytes 0.7 10^3/uL (0.0-0.9); ABS Neutrophils 5.4 10^3/uL (1.5-7.6); ABS Nucleated RBC 0.02 10^3/ul; Anisocytosis 1+; Eosinophil % 1.1 %; Hematocrit 39.5 % (35-45); Hemoglobin 12.8 g/dL (11.5-14.3); Lymphocyte % 19.4 %; Mean Corpuscular Hemoglobin 27.1 pg (27-33); Mean Corpuscular Hgb Conc 32.4 g/dL (31-36); Mean Corpuscular Volume 83.6 fL (80-97); Mean Platelet Volume 9.2 fL (7.5-11.2); Nucleated Red Blood Cells % 0.2 %/100WBC (0.0-0.8); Platelet Count 234 10^3/uL (150-450); Polychromasia 2+; Red Blood Count 4.73 10^6/uL (3.63-4.92); Red Cell Distribution Width 30.6 % (12-17); White Blood Count 7.8 10^3/uL (3.8-11.8)
[2024-07-09] MEDS: Lactated Ringers 1000 ml BAG 1,000 ML IV ONE (19:28)
[2024-07-09] MEDS: Buffered Lidocaine 1% SYRIN 1 ml INTRADERM ONE (19:30)
[2024-07-09] MEDS ORDERED: Glycerin ADULT 2.4 gm SUPP PR PRN (20:17)
[2024-07-09] MEDS: Oxytocin in LR 20,000 MILLI.UNIT/1,000 ML BAG IV SCH (20:27)
[2024-07-09] MEDS: Witch Hazel PAD JAR TOPICAL PRN (20:58)
[2024-07-09] MEDS: Dibucaine 1% OINT 28.35 GM TUBE PR PRN (20:58)
[2024-07-09] MEDS: Lactated Ringers 1000 ml BAG 1,000 ML IV SCH (21:23)
[2024-07-10 07:49] LABS: Hematocrit 37.1 % (35-45); Hemoglobin 12.4 g/dL (11.5-14.3); Mean Corpuscular Hemoglobin 27.9 pg (27-33); Mean Corpuscular Hgb Conc 33.4 g/dL (31-36); Mean Corpuscular Volume 83.5 fL (80-97); Mean Platelet Volume 9.1 fL (7.5-11.2); Platelet Count 185 10^3/uL (150-450); Red Blood Count 4.45 10^6/uL (3.63-4.92); Red Cell Distribution Width 30.5 % (12-17); White Blood Count 9.5 10^3/uL (3.8-11.8)
[2024-07-10 07:51] LABS: ABS Eosinophils 0.1 10^3/uL (0.0-0.5); ABS Lymphocytes 1.7 10^3/uL (1.0-4.8); ABS Monocytes 0.9 10^3/uL (0.0-0.9); ABS Neutrophils 6.8 10^3/uL (1.5-7.6); ABS Nucleated RBC 0.01 10^3/ul; Eosinophil % 0.8 %; Giant Platelets Present; Nucleated Red Blood Cells % 0.1 %/100WBC (0.0-0.8)
[2024-07-11 09:10] VITALS: BP 103/67
== END 2024-07-11 12:58 | disposition home or self-care (01) | DRG 560 ==
LOC: MCHOBOUT 08:58 → MCHOB 09:22
PROVIDERS: ADMIT Midwife; ATTEND Midwife